=== PATIENT | female | born 2000 | race African-American/Black ===

== ENCOUNTER 2021-04-15 19:44 | Emergency (ER) | payer OTHER ==
[2021-04-15] MEDS ORDERED: Acetaminophen 500 MG TAB ONE (20:01)
[2021-04-15] MEDS ORDERED: Ibuprofen 200 MG TAB ONE (22:18)
[2021-04-16 17:17] LABS: SARS-CoV-2 PCR by NAA DETECTED (NotDetected)
== END 2021-04-15 22:29 | disposition home or self-care (01) ==
LOC: CSHERS 19:44
DX: U07.1 COVID-19 (principal)
CPT/HCPCS: 99284; U0003; U0005

== ENCOUNTER 2023-02-06 17:55 | Emergency (ER) | payer OTHER, SELFPAY | END 2023-02-06 20:12 | disposition left against medical advice (07) | LOC: CSHERS 17:55 | DX: Z53.21 Procedure and treatment not carried out due to patient leaving prior to being seen by health care provider (principal) ==